=== PATIENT | male | born 1990 | race Caucasian/White ===

== ENCOUNTER 2016-11-21 22:52 | Emergency (ER) | payer MEDICARE | END 2016-11-21 23:45 | disposition home or self-care (01) | LOC: D.ER 22:52 | DX: L02.214 Cutaneous abscess of groin (principal); F17.200 Nicotine dependence, unspecified, uncomplicated ==

== ENCOUNTER 2017-03-26 20:34 | Emergency (ER) | payer MEDICARE | END 2017-03-26 21:44 | disposition home or self-care (01) | LOC: D.ER 20:34 | DX: K04.7 Periapical abscess without sinus (principal); K08.89 Other specified disorders of teeth and supporting structures ==

== ENCOUNTER 2017-07-19 02:25 | Emergency (ER) | payer MEDICARE | END 2017-07-19 02:59 | disposition home or self-care (01) | LOC: D.ER 02:25 | DX: J02.9 Acute pharyngitis, unspecified (principal); F17.200 Nicotine dependence, unspecified, uncomplicated ==

== ENCOUNTER 2017-09-06 18:58 | Emergency (ER) | payer MEDICARE | END 2017-09-06 19:40 | disposition home or self-care (01) | LOC: D.ER 18:58 | DX: K08.89 Other specified disorders of teeth and supporting structures (principal); S02.5XXA Fracture of tooth (traumatic), initial encounter for closed fracture; X58.XXXA Exposure to other specified factors, initial encounter; Y93.89 Activity, other specified; Y92.019 Unspecified place in single-family (private) house as the place of occurrence of the external cause ==

== ENCOUNTER 2018-04-17 01:05 | Emergency (ER) | payer MEDICARE ==
[~2018-04-17] VITALS: Ht 170.2 cm; Wt 118.2 kg
[2018-04-17 01:11] VITALS: Ht 170.2 cm; Wt 118.2 kg
[2018-04-17] MEDS ORDERED: PENICILLIN V P500 MG PO (02:08)
[2018-04-17] MEDS ORDERED: TYLENOL W/CODEI1 TAB PO (02:08)
[2018-04-17 02:34] VITALS: BP 130/72
== END 2018-04-17 02:35 | disposition home or self-care (01) ==
LOC: D.ER 01:05
DX: K04.7 Periapical abscess without sinus (principal); K08.89 Other specified disorders of teeth and supporting structures; F17.200 Nicotine dependence, unspecified, uncomplicated

== ENCOUNTER 2019-05-28 20:48 | Emergency (ER) | payer MEDICARE ==
[~2019-05-28] VITALS: Ht 170.2 cm; Wt 115.9 kg
[~2019-05-28 20:48] MED LIST: PENICILLIN V P500 MG PO; TYLENOL W/CODEI1 TAB PO
[2019-05-28 21:03] VITALS: Ht 170.2 cm; Wt 115.9 kg
[2019-05-28] MEDS ORDERED: CLEOCIN HCL300 MG PO (22:34)
[2019-05-28] MEDS ORDERED: TORADOL10 MG PO (22:34)
[2019-05-28 22:42] VITALS: BP 128/75
== END 2019-05-28 22:42 | disposition home or self-care (01) ==
LOC: D.ER 20:48
DX: K08.89 Other specified disorders of teeth and supporting structures (principal)

== ENCOUNTER 2019-09-26 14:00 | Emergency (ER) | payer MEDICARE ==
[~2019-09-26] VITALS: Ht 170.2 cm; Wt 120.5 kg
[~2019-09-26 14:00] MED LIST changes: +CLEOCIN HCL300 MG PO; +TORADOL10 MG PO
[2019-09-26 14:06] VITALS: Ht 170.2 cm; Wt 120.5 kg
[2019-09-26] MEDS ORDERED: TAMIFLU75 MG PO (15:04)
[2019-09-26 15:31] VITALS: BP 136/88
== END 2019-09-26 15:37 | disposition home or self-care (01) ==
LOC: D.ER 14:00
DX: J11.1 Influenza due to unidentified influenza virus with other respiratory manifestations (principal); R50.9 Fever, unspecified; Z72.0 Tobacco use